=== PATIENT | male | born 1970 | race African-American/Black ===

== ENCOUNTER 2016-10-26 07:48 | Inpatient (IN) ==
[2016-10-26 08:32] LABS: Basophils % 0.1 % (0.0-0.8); Hematocrit 32.7 VOL% (42.0-52.0); Hemoglobin 12.1 GM/DL (14.0-18.0); Immature Granulocytes % 0.2 %; Immature Granulocytes Absolute 0.02 #; Lymphocytes # 0.8 10*3/uL (1.4-4.0); Lymphocytes % 9.3 % (21.2-54.2); Mean Corpuscular Hemoglobin 26 PG (27-34); Mean Corpuscular Volume 70.6 FL (87-102); Mean Platelet Volume 9.2 FL (9.6-12.0); Monocytes # 0.8 10*3/uL (0.11-0.8); Monocytes % 9.4 % (1.7-12.7); Neutrophils # 6.6 10*3/uL (1.4-7.4); Platelet Count 203 T/CUMM (130-400); Red Blood Count 4.63 MC/CUMM (3.8-5.5); White Blood Count 8.1 T/CUMM (4-12)
--- NOTE | 2016-10-26 08:45 | CT Report ---
History: Headache and confusion Date: 10/26/2016 Study: CT head without contrast Comparison exam: September 26, [address] sections were obtained through the head without IV contrast. Total DLP measures 1329.8 mGy*cm. The CT exam was performed using one or more of the following dose reduction techniques: Automated exposure control and adjustment of the mA and/or kV according to patient size. The ventricles are midline in position without evidence of hydrocephalus. There is no mass or parenchymal hemorrhage. There is no gross CT evidence of acute cortical stroke. There is no extra-axial hematoma. There is a small fluid level in the left sphenoid sinus. The paranasal sinuses and mastoid air cells are otherwise generally clear where seen. There is no acute abnormality of the calvarium. Impression: No acute intracranial process. Mild left sphenoid sinusitis PROCEDURE INTERPRETED AT [facility], [place] DEPARTMENT OF RADIOLOGY Final Report Signed by: Dr. Ileana Mariee
[2016-10-26 08:55] LABS: Albumin 3.8 G/DL (3.4-5.0); Bilirubin,Total 0.9 MG/DL (0.2-1.0); Calcium 8.2 MG/DL (8.5-10.1); Osmolality,Calculated 225.5 MOS/KG (273-304); Potassium 3.3 MMOL/L (3.5-5.1)
--- NOTE | 2016-10-26 09:20 | Emergency Department Note ---
Asim Otoole Gwan, am scribing for, and in the presence of, Stephon Yuan Jr., MD 08:25. Lissy Otoole Marvin Jr., MD, personally performed the services described in this documentation, ascribed by Jerry Dailey in my presence, and it is both accurate and complete 916 . Arrival - Arrival Chief Complaint: Nausea/Vomiting/Diarrhea Stated Complaint: nausea/vomiting ED Nursing Triage Note: c/o having nausea / vomiting x 3 today per the parent, Oncly complaint is headache, denies having increase temp, patient has history of intellectual delay, accucheck 195 en route, Mode of Arrival: Stretcher Limitations: No Limitations Source: Patient, Family (Mother), Old Records Reviewed, RN Notes Reviewed - History of Present Illness HPI Narrative: Pt is a 45 y/o male who presents to the ED with a c/o vomiting/nausea with an onset 9 days ago and a headache with an onset 3-4 days ago. Patient is accompanied by his mother. Mother confirmed that the pt woke up this morning and vomitied all over the kitchen. She continued to say that the vomit looked like water and that the patient has been confused and sweaty. Patient stated that his headache pain is in the front of his head. Mother continued to say that the patient has been around both parents that have the flu. She confirmed that pt had a CT scan done 3 weeks ago. Patient denies having any abdominal pain. Pt has a PMHx of bipolar disorder and schizophrenia. Patient has no SHx reported. No other problems/complaints reported in Ed Onset (ago): day(s) Consistency: constant Severity: moderate Allergies/Adverse Reactions: Allergies Allergy/AdvReac Type Severity Reaction Status Date / Time No Known Allergies Allergy Verified 05/06/16 15:43 Review of System - Review of System 12 point system: reviewed and no additional remarkable complaints except as stated - Review of System Gastrointestinal: Present: as per HPI, nausea, vomiting. Absent: abdominal pain Neurological: Present: as per HPI, headache, confusion Medical,Surgical,& Family Hx - Medical History Psychological: History of: Bipolar Disorder, Schizophrenia - Social History Smoking Status: Never smoker Frequency of Alcohol Use: None Type of Drug Use: None Exam Physical Examination: General: Well-developed well-nourished, no apparent distress. Head: Normocephalic, atraumatic. Eyes: PERRLA, EOMI. Nose: No obvious acute deformities or discharge. Mouth: No obvious acute injury. Mucous membranes may be a little dry. Neck: Full range of motion without obvious pain. No midline tender to palpation. Lymphatic: no significant lymphadenopathy noted. Lungs: Clear to auscultation bilaterally, normal and equal air movement bilaterally, no obvious rales or wheezing. Heart: regular rate and rhythm, no obvious mummers. Abdomen: Soft nontender, nondistended, normal active bowel sounds. Skin: No obivous acute lesions noted Musculoskeletal: No gross deformities. Neurological: No focal findings, cranial nerves II through XII grossly normal. Follows directions, cyanosis head hurts right in the front but there is no gross lesions there. No evidence of trauma. Moves all limbs, follows directions, does seem a little mentally slow Psychiatric: Appropriate mood.. : Deferred Vital Signs: Vital Signs Temperature 97.5 F L 10/26/16 07:49 Pulse Rate 69 10/26/16 08:45 Respiratory Rate 20 10/26/16 08:45 Blood Pressure 151/88 10/26/16 08:45 O2 Sat by Pulse Oximetry 100 10/26/16 08:45 Course Course Narrative: Reviewed her past medical records. CT was done on September 26 for headache which is normal based on the report., Differential diagnosis today includes headache, intracerebral problems, vomiting, mild dehydration, infection - Reevaluation(s) Reevaluation #1: Patient's doctor is out of town so we will admit this patient to the hospitalist service. I called them and they accept care for this patient. Mom tells me that patient drinks what she thinks is an excessive amount of water. Time: 09:16 Results - Labs CBC & BMP: 10/26/16 08:30 10/26/16 08:30 Lab Results: I have reviewed the patients labs Labs: Laboratory Tests 10/26/16 08:30 WBC 8.1 RBC 4.63 Hgb 12.1 L Hct 32.7 L MCV 70.6 L MCH 26 L MCHC 37.0 H RDW 12.0 Plt Count 203 MPV 9.2 L Neut % (Auto) 81.0 H Lymph % (Auto) 9.3 L [place] % (Auto) 9.4 Eos % (Auto) 0.0 Baso % (Auto) 0.1 Neut # (Auto) 6.6 Lymph # (Auto) 0.8 L [place] # (Auto) 0.8 Eos # (Auto) 0.0 Baso # (Auto) 0.0 Immature Gran % 0.2 Nucleated RBC % 0.0 Immature Gran # 0.02 Nucleated RBCs # 0.00 Laboratory Tests 10/26/16 08:30 Sodium 111 L* Potassium 3.3 L Chloride 67 L Carbon Dioxide 29 Anion Gap 18.3 H BUN 9 Creatinine 0.80 GFR Calculation 0 BUN/Creatinine Ratio 11.00 Glucose 133 H Calculated Osmolality 225.5 L Calcium 8.2 L Total Bilirubin 0.90 AST 48 H ALT 29 Alkaline Phosphatase 42 L Total Protein 7.0 Albumin 3.8 Globulin 3.2 Albumin/Globulin Ratio 1.1 - Diagnostic Findings Procedure: CT: image reviewed by me, report reviewed by me, pending (Head CT: No acute intracranial process. Mild left sphenoid sinusitis. Personally reviewed the head CT and agree with these findings. ) Disposition Clinical Impression: Confusion, Severe hyponatremia, Vomiting, Psychiatric issues, Learning deficiency, Hypokalemia, Sinusitis, Confusion Case discussed with: patient, patient's family Disposition: Still a Patient Condition: Stable Time of Disposition: 09:19
[2016-10-26] MEDS ORDERED: ACETAMINOPHEN 325 MG TABLET PO PRN (10:05)
--- NOTE | 2016-10-26 10:53 | Hospitalist History & Physical ---
<Dina Vang - Last Filed: 10/26/16 11:00> Assessment and Plan (1) Hyponatremia Status: Acute Assessment and plan: Monitor serial sodium levels. Current Visit: Yes History of Present Illness History of present illness: Mr. Wagner is a 45-year-old black male patient who presented to the ED via EMS today with complaints of nausea and vomiting. Patient is cognitively impaired and is accompanied by his mother. Due to patient's mental status, it is hard to get answers to some of questions. Pt's mother is at bedside. Patient's mother stated the patient began to vomit this morning and that it looks like water and that the time the patient was confused and profusely sweating. Patient mother also confirmed the patient had a CT done 3 weeks ago but she did not know the results. The patient has a history of bipolar disorder and schizophrenia and takes several medications for the conditions. The patient denies any fever, chills, but does admit to chest pain. The patient will be admitted to the hospitalist service for further evaluation and correction of sodium. Home Medications Medication Instructions Recorded Confirmed Type Asenapine Maleate [Saphris] 10 mg SL QOTHER DAY 10/26/16 10/26/16 History Atenolol 25 mg PO DAILY 10/26/16 10/26/16 History Benztropine Tab [Cogentin Tab] 2 mg PO BID 10/26/16 10/26/16 History Divalproex [Depakote] 500 mg PO BID 10/26/16 10/26/16 History Haloperidol Decanoate 200 mg IM Q30D 10/26/16 10/26/16 History Lisinopril 20 mg PO DAILY 10/26/16 10/26/16 History Simvastatin [Zocor] 20 mg PO QPM 10/26/16 10/26/16 History Allergies Allergy/AdvReac Type Severity Reaction Status Date / Time No Known Allergies Allergy Verified 05/06/16 15:43 Medical,Surgical,& Family Hx - Medical History Psychological: History of: Bipolar Disorder, Schizophrenia - Social History Smoking Status: Never smoker Frequency of Alcohol Use: None Type of Drug Use: None Exam - Constitutional Vitals: Period Temp Pulse Resp BP Sys/Chapman Pulse Ox Last 24 Hr 97.5 F 60-74 16-20 118-151/61-93 100-100 - Head Head exam: Present: normal inspection, normocephalic, atraumatic - Eye Eye exam: Present: EOMI Pupils: Present: MARCIAL, normal accommodation - Neck Neck exam: Present: normal inspection - Respiratory Respiratory exam: Present: clear to auscultation bilaterally. Absent: wheezes - GI/Abdominal GI/Abdominal exam: Present: normal bowel sounds, soft. Absent: tenderness - Extremities Exam Extremities exam: Present: normal inspection, normal capillary refill, full ROM - Neurological Exam Neurological exam: Present: alert, altered (pt. confusion) - Psychiatric Psychiatric exam: Present: other (pt is mentally retarded.) - Skin Skin exam: Present: normal color, warm Results - Labs CBC & BMP: 10/26/16 08:30 10/26/16 08:30 Lab Results: I have reviewed the past 24 hour labs <Surya Bell - Last Filed: 10/26/16 16:54> Assessment and Plan (1) Hypokalemia Status: Acute Current Visit: Yes (2) Hyponatremia Status: Acute Assessment and plan: Hypotonic hyponatremia Appears euvolemic on my exam Multiple possible causes including psychogenic polydipsia and SIADH among others Will attempt fluid restriction now, if does not work or patient deteriorates might have to consider hypertonic saline. Current Visit: Yes (3) Vomiting Status: Acute Current Visit: Yes History of Present Illness Chief complaint: vomiting History of present illness: Patient seen and examined with TRIAGE ASSISTANT Vang, agree with history, assessment and plan as documented. 45 y/o AAM with bipolar disorder, schizophrenia and intellectual impairment admitted with hyponatremia. Patient is on depakote and lisinopril. Per patient' s mother she has been letting him handle his own medications. She is not sure what he has been taking or how much. She also reports that he has been drinking non-stop water for the last few days. She is unable to quantify, but believes maybe a gallon a day. - Constitutional Constitutional: Absent: chills, lethargy - EENT Eyes: Absent: blurry vision, loss of vision Ears: Absent: decreased hearing, ear discharge Nose, mouth and throat: Absent: nasal congestion, sore throat - Cardiovascular Cardiovascular: Absent: chest pain at rest, dyspnea - Respiratory Respiratory: Absent: cough, wheezing - Gastrointestinal Gastrointestinal: Present: nausea, vomiting. Absent: abdominal pain, bloating - Genitourinary Genitourinary: Present: difficulty urinating. Absent: dysuria, urinary frequency - Musculoskeletal Musculoskeletal: Absent: joint swelling, muscle weakness - Neurological Neurological: Absent: abnormal speech, behavioral changes - Psychiatric Psychiatric: Absent: anxiety, depression - Endocrine Endocrine: Absent: cold intolerance, heat intolerance - Hematologic/Lymphatic Hematologic/Lymphatic: Absent: easy bleeding, easy bruising Exam - Constitutional Vitals: Period Temp Pulse Resp BP Sys/Chapman Pulse Ox Last 24 Hr 97.2 F 66-71 18-20 127-141/70-93 99-100 General appearance: normal weight - Cardiovascular Cardiovascular exam: Present: regular rate and rhythm - Back Exam Back exam: Present: normal inspection - Psychiatric Psychiatric exam: Present: normal affect, normal mood Results - Labs CBC & BMP: 10/26/16 08:30 10/26/16 13:22
[2016-10-26] MEDS ORDERED: POTASSIUM CHLORIDE RIDER 10 MEQ in PREMIX 1 EACH IV PRN (13:28)
[2016-10-26] MEDS ORDERED: SODIUM CHLORIDE 1 GM TABLET PO SCH (14:30)
[2016-10-26] MEDS: POTASSIUM CHLORIDE 20 MEQ TABLET PO PRN ×2 (15:59→18:01)
[2016-10-27 05:22] LABS: Free T4 (Free Thyroxine) 1.91 NG/DL (0.76-1.46); Thyroid Stimulating Hormone 0.389 uIU/ml (0.358-3.74)
--- NOTE | 2016-10-27 08:34 | Hospitalist Progress Note ---
Assessment and Plan (1) Hypokalemia Status: Acute Current Visit: Yes (2) Hyponatremia Status: Acute Assessment and plan: Hypotonic hyponatremia Appears euvolemic on my exam Multiple possible causes including psychogenic polydipsia and SIADH among others Currently on fluid restriction with no change in sodium levels Have been unable to obtain a urine sample for further studies Will consult nephrology for assistance Current Visit: Yes (3) Vomiting Status: Acute Current Visit: Yes Hospitalist: Subjective Interval history: No acute events overnight. Patient denies nausea or vomiting this morning. Complaining of hiccups. Alert and oriented x3. Sodium has not changed all night. Will consult nephrology for assistance. Exam - Constitutional Vitals: Period Temp Pulse Resp BP Sys/Chapman Pulse Ox Last 24 Hr 97.2 F-99.2 F 60-94 18-20 127-159/60-93 98-100 General appearance: normal weight - Head Head exam: Present: normocephalic, atraumatic - Eye Eye exam: Present: EOMI Pupils: Present: MARCIAL - ENT ENT exam: Present: normal exam, normal oropharynx - Neck Neck exam: Present: normal inspection. Absent: tenderness - Respiratory Respiratory exam: Present: clear to auscultation bilaterally. Absent: rales, wheezes - Cardiovascular Cardiovascular exam: Present: regular rate and rhythm - GI/Abdominal GI/Abdominal exam: Present: normal bowel sounds, soft. Absent: tenderness, rebound - Extremities Exam Extremities exam: Present: normal inspection - Back Exam Back exam: Present: normal inspection - Neurological Exam Neurological exam: Present: alert, oriented X3 - Psychiatric Psychiatric exam: Present: normal affect, normal mood - Skin Skin exam: Present: warm, intact Results - Labs CBC & BMP: 10/26/16 08:30 10/26/16 20:10
[2016-10-27 09:32] LABS: Calcium 8.2 MG/DL (8.5-10.1); Magnesium 1.9 MG/DL (1.8-2.4); Osmolality,Calculated 228.2 MOS/KG (273-304); Potassium 3.1 MMOL/L (3.5-5.1)
--- NOTE | 2016-10-27 12:08 | Nephrology Consult Note ---
History of Present Illness Chief complaint: hyponatremia History of present illness: Mr. Wagner is a 45 year old male with a history of bipolar disorder/chronic schizophrenia. We are asked to see him because of hyponatremia. Admission serum sodium was 108. There is a history of heavy water ingestion. The patient admits that he drinks a lot of water. His mother is not willing but apparently she gave most of the history earlier. The patient denies any previous problems with water ingestion. Renal function is normal serum osmolality is appropriately low. Thyroid and adrenal function appear to be normal. On exam he has no edema and a normal blood pressure. Chest is clear heart without rub or gallop. He appears to be euvolemic. 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 From that point I think we can continue with fluid restriction and that should correct the problem. Home Medications Medication Instructions Recorded Confirmed Type Asenapine Maleate [Saphris] 10 mg SL QOTHER DAY 10/26/16 10/26/16 History Atenolol 25 mg PO DAILY 10/26/16 10/26/16 History Benztropine Tab [Cogentin Tab] 2 mg PO BID 10/26/16 10/26/16 History Divalproex [Depakote] 500 mg PO BID 10/26/16 10/26/16 History Haloperidol Decanoate 200 mg IM Q30D 10/26/16 10/26/16 History Lisinopril 20 mg PO DAILY 10/26/16 10/26/16 History Simvastatin [Zocor] 20 mg PO QPM 10/26/16 10/26/16 History Allergies Allergy/AdvReac Type Severity Reaction Status Date / Time No Known Allergies Allergy Verified 05/06/16 15:43 Medical,Surgical,& Family Hx - Medical History Cardio: History of: Hypertension Psychological: History of: Bipolar Disorder, Schizophrenia Neurology: History of: Seizures Respiratory: History of: COPD Gastrointestinal: History of: GERD - Surgical History Abdominal Surgeries: Patient denies: Appendectomy, Cholecystectomy - Family History Family History: Reports;: Family Heart Disease, Family Hypertension - Social History Smoking Status: Never smoker Frequency of Alcohol Use: None Type of Drug Use: None Review of Systems 12 point system: reviewed and no additional remarkable complaints except as stated Exam - Vital Signs Vital signs: Period Temp Pulse Resp BP Sys/Chapman Pulse Ox Last 24 Hr 97.2 F-99.2 F 60-94 18-20 127-159/60-78 98-100 - General Appearance General appearance: well-developed, well-nourished, appears started age EENT: ATNC Neck: no JVD, no thyromegaly, no carotid bruit, supple Respiratory: no kyphosis, no scoliosis Cardiology: no murmurs, no rub, no gallops, no edema, regular rate, regular rhythm, normal S1, normal S2 Gastrointestinal: normoactive bowel sounds, no tenderness, no guarding, no organomegaly Integumentary: no rash, warm and dry Neurologic: no focal deficit, no asterixis, alert and oriented x3, reflexes 2+ and symmetric, gait normal, strength 5/5 Musculoskeletal: no deformities, no erythema, no cyanosis, no clubbing Psychiatric: cooperative Results - Labs CBC & BMP: 10/26/16 08:30 10/27/16 08:47 Assessment and Plan (1) Hyponatremia Status: Acute Assessment and plan: 3% saline slowly Current Visit: Yes
[2016-10-27] MEDS ORDERED: INFLUENZA VIRUS VACCINE 0.5 ML SYRINGE IM ONE (12:16)
[2016-10-27] MEDS: chlorproMAZINE 25 MG TABLET PO PRN (12:50)
[2016-10-27] MEDS: SODIUM CHLORIDE 3% INJ 500 ML IV SCH (13:45)
[2016-10-27 14:45] LABS: Calcium 7.9 MG/DL (8.5-10.1); Osmolality,Calculated 231.3 MOS/KG (273-304); Potassium 2.8 MMOL/L (3.5-5.1)
[2016-10-27] MEDS ORDERED: MORPHINE 2 MG/1 ML SYRINGE ONE (17:25)
[2016-10-28] MEDS: chlorproMAZINE 25 MG TABLET PO PRN ×4 (01:23→22:15)
[2016-10-28 05:15] LABS: Basophils % 0.1 % (0.0-0.8); Eosinophils % 0.3 % (0.00-10.9); Hematocrit 32.1 VOL% (42.0-52.0); Hemoglobin 11.8 GM/DL (14.0-18.0); Immature Granulocytes % 0.3 %; Immature Granulocytes Absolute 0.02 #; Lymphocytes # 1.2 10*3/uL (1.4-4.0); Lymphocytes % 16.2 % (21.2-54.2); Mean Corpuscular HGB Conc 36.8 GM/DL (32-36); Mean Corpuscular Hemoglobin 26 PG (27-34); Mean Corpuscular Volume 69.3 FL (87-102); Mean Platelet Volume 9.5 FL (9.6-12.0); Monocytes # 0.9 10*3/uL (0.11-0.8); Monocytes % 12.5 % (1.7-12.7); Neutrophils % 70.6 % (38.7-73.9); Platelet Count 239 T/CUMM (130-400); Red Blood Count 4.63 MC/CUMM (3.8-5.5); Red Cell Distribution Width 12.4 % (9.3-17.3); White Blood Count 7.1 T/CUMM (4-12)
[2016-10-28 05:55] LABS: Calcium 8.4 MG/DL (8.5-10.1); Magnesium 2.4 MG/DL (1.8-2.4); Osmolality,Calculated 243.9 MOS/KG (273-304)
[2016-10-28] MEDS: SODIUM CHLORIDE 3% INJ 500 ML IV SCH (08:14)
--- NOTE | 2016-10-28 08:25 | Hospitalist Progress Note ---
Assessment and Plan (1) Hyponatremia Status: Acute Current Visit: Yes (2) Schizo affective schizophrenia Status: Chronic Current Visit: Yes Hospitalist: Subjective Interval history: 45 yo male with schizoaffective disorder who presented with nausea and vomiting with critical hyponatremia. No spontaneous rise with fluid restriction and hospital observation, with initiation of 3% saline infusion. He has had no abdominal pain or emesis still with singulus. His medication list does not point to any specific agents that might be contributing. Exam - Constitutional Vitals: Period Temp Pulse Resp BP Sys/Chapman Pulse Ox Last 24 Hr 96.2 F-98.5 F 78-94 17-20 138-168/65-80 91-100 General appearance: normal weight - Respiratory Respiratory exam: Present: clear to auscultation bilaterally. Absent: rales, rhonchi, wheezes - Cardiovascular Cardiovascular exam: Present: regular rate and rhythm - GI/Abdominal GI/Abdominal exam: Present: normal bowel sounds. Absent: tenderness, rebound - Extremities Exam Extremities exam: Absent: edema - Neurological Exam Neurological exam: Present: alert Results - Labs CBC & BMP: 10/28/16 04:53 10/28/16 04:53 Labs: magnesium 2.4
[2016-10-28] MEDS: POTASSIUM CHLORIDE 20 MEQ TABLET PO SCH ×4 (09:33→21:10)
[2016-10-28] MEDS ORDERED: HALOPERIDOL DECANOATE 200 MG IM SCH (14:00)
[2016-10-28] MEDS: ONDANSETRON ODT 4 MG TABLET PO PRN ×2 (15:55→21:10)
--- NOTE | 2016-10-28 16:04 | XRay Report ---
XR chest 2V Indication: Hyponatremia Comparison: None Technique: Frontal and lateral views of the chest Findings: Heart size appears within normal limits. Moderate elevation of the right hemidiaphragm. No focal consolidation, pleural effusion, or pneumothorax. Osseous and surrounding soft tissue structures demonstrate no acute abnormality. IMPRESSION: No acute cardiopulmonary process demonstrated. Elevation of the right hemidiaphragm. PROCEDURE INTERPRETED AT [facility] DEPARTMENT OF RADIOLOGY Final Report Signed by: Dr Slade Hanna
--- NOTE | 2016-10-28 16:53 | Nephrology Progress Note ---
Nephrology - PN: Subj Interval history: Mr. Wagner is seen in follow-up of his hyponatremia. He is much improved and now has a serum sodium of 422. He received 500 cc 3% saline tolerated that well. He should not need anymore. We reviewed his history with his mother today and she confirms that he is drinking massive amounts of water at home. Psychogenic water drinking is the etiology of his hyponatremia. He seems to be cooperating with his fluid restriction here in the hospital. If his serum sodium is higher tomorrow think is fine to be going home. 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 Exam (PN)-Nephrology - Vital Signs Vital signs: Period Temp Pulse Resp BP Sys/Chapman Pulse Ox Last 24 Hr 96.2 F-97.7 F 78-127 18-20 132-168/67-97 96-100 - Lab 10/28/16 04:53 10/28/16 04:53 Most recent lab results Calcium 8.4 MG/DL (8.5-10.1) L 10/28/16 04:53 Magnesium 2.4 MG/DL (1.8-2.4) 10/28/16 04:53 Assessment and Plan (1) Hyponatremia Status: Acute Assessment and plan: 3% saline slowly Current Visit: Yes
[2016-10-28] MEDS ORDERED: SIMVASTATIN 20 MG TABLET PO SCH (19:00)
[2016-10-28] MEDS: BENZTROPINE 1 MG TABLET PO SCH (21:10)
[2016-10-28] MEDS: DIVALPROEX 500 MG TABLET PO SCH (21:10)
[2016-10-29 03:56] LABS: Calcium 8.7 MG/DL (8.5-10.1); Osmolality,Calculated 268.1 MOS/KG (273-304); Potassium 4.5 MMOL/L (3.5-5.1)
--- NOTE | 2016-10-29 07:07 | Discharge Summary ---
Hospital Course - Hospital Course Hospital Course: 45 yo male with schizoaffective disorder and mental retardation had presented with history of nausea and vomiting with serum sodium level of 110. 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 He required a short course of 3% saline for correction and symptomatic resolution. His discharge electrolytes are normal. Diagnosis - Discharge Diagnosis (1) Hyponatremia Status: Acute (2) Schizo affective schizophrenia Status: Chronic Discharge Plan - Discharge Data Disposition: Disch To Home/Self Care Condition at Discharge: Stable Discharge Diet: advance to your usual diet - Discharge Medications Continue Divalproex [Depakote] 500 mg PO BID Benztropine Tab [Cogentin Tab] 2 mg PO BID Atenolol 25 mg PO DAILY Asenapine Maleate [Saphris] 10 mg SL QOTHER DAY Lisinopril 20 mg PO DAILY Simvastatin [Zocor] 20 mg PO QPM Haloperidol Decanoate 200 mg IM Q30D - Follow Up or Referral - Forms/Instructions Exam - Constitutional Vitals: Period Temp Pulse Resp BP Sys/Chapman Pulse Ox Last 24 Hr 97.0 F-98 F 100-127 -22 97-167/55-97 97-100 Discharge Results Procedures and tests throughout hospitalization: Pending Orders 10/26/16 13:20 Osmolality,Urine Routine Labs on day of discharge: Labs from last 24 hours 10/29/16 03:06 Sodium 135 L Potassium 4.5 Chloride 99 Carbon Dioxide 25 Anion Gap 15.5 H BUN 6 L Creatinine 1.00 GFR Calculation 134 BUN/Creatinine Ratio 6.00 Glucose 110 H Calculated Osmolality 268.1 L Calcium 8.7 DS: Provider Date of admission: 10/26/16 10:02 Primary care physician: Reg Murphy Attending physician on admission: Surya Bell MD Consults: 10/27/16 06:33 Consult to Physician [CONS] Routine Comment: hyponatremia Consulting Provider: James Carr Consult to Specialist Group: Nephrology Person Notified: DON Date Notified: 10/27/16 Time Notified: 08:45 Discharging clinician: Ross Schwartz MD Expected date of discharge: 10/29/16
[2016-10-29] MEDS ORDERED: LISINOPRIL 20 MG TABLET PO SCH (09:00)
[2016-10-29] MEDS ORDERED: ATENOLOL 25 MG TABLET PO SCH (09:00)
[2016-10-29] MEDS: chlorproMAZINE 25 MG TABLET PO PRN (09:45)
[2016-10-29] MEDS: BENZTROPINE 1 MG TABLET PO SCH (09:45)
[2016-10-29] MEDS: DIVALPROEX 500 MG TABLET PO SCH (09:45)
[2016-10-29 09:55] VITALS: BP 115/64
[2016-10-30] MEDS ORDERED: NON-FORMULARY MEDICATION (Asenapine Maleate [Saphris] 10 MG) SL SCH (09:00)
== END 2016-10-29 11:00 | disposition home or self-care (01) | DRG 641 ==
LOC: EDUNIT# → EDBD → N.ED 07:48 → SUATTDRO 10:02 → N.EDINP 10:02 → N.TELEN 12:05 → N.4E 10-27 19:46
PROVIDERS: ADMIT Internal Medicine; ATTEND Internal Medicine Cardiovascular Disease